=== PATIENT | male | born 1935 | race Caucasian/White ===

== ENCOUNTER 2018-06-22 08:56 | Inpatient (IN) | payer MEDICARE, OTHER ==
[~2018-06-22] VITALS: Ht 185.4 cm; Wt 96.3 kg
[~2018-06-22 08:56] MED LIST: AMIO100T3 PO; ASPI-1071 PO; CHOL400T32 PO; ESOM40CA PO; GABA-532 PO; HYDR-4353 PO; LEVO125T PO; ROPI1TAB2 PO; TEMA30CA PF
[2018-06-22] MEDS ORDERED: acetaminophen 325mg tablet PO STA (09:19)
[2018-06-22] MEDS ORDERED: normal saline 1000ML IV soln IV ONE (09:20)
[2018-06-22] MEDS ORDERED: ipratropium/albuterol 3ml nebule NEB ONE (09:30)
[2018-06-22 09:53] LABS: BASOPHILS # (AUTO) 0.2 X10'3 (0-0.2); BASOPHILS % (AUTO) 1.5 % (0-1); EOSINOPHILS % (AUTO) 0 % (0-6); HEMATOCRIT 43.5 % (42.0-52.0); HEMOGLOBIN 14.2 g/dl (14.0-17.9); LYMPHOCYTES # (AUTO) 0.4 X10'3 (1.1-4.8); LYMPHOCYTES % (AUTO) 3.6 % (21-51); MEAN CORPUSCULAR HEMOGLOBIN 27.3 PG (27.0-31.0); MEAN CORPUSCULAR HGB CONC 32.7 % (33.0-36.5); MEAN CORPUSCULAR VOLUME 83.6 FL (78-98); MEAN PLATELET VOLUME 9.1 FL (7.4-10.4); MONOCYTES # (AUTO) 0.3 X10'3 (0-0.9); MONOCYTES % (AUTO) 2.3 % (2-12); NEUTROPHILS # (AUTO) 11.1 X10'3 (1.8-7.7); NEUTROPHILS % (AUTO) 92.6 % (42-75); PLATELET COUNT 204 X10'3 (140-440); RED CELL DISTRIBUTION WIDTH 13.4 % (11.5-14.5)
[2018-06-22] MEDS ORDERED: levoFLOXACIN-Levaquin 750MG/D5 150 ML IV ONE (10:05)
[2018-06-22 10:08] LABS: ALANINE AMINOTRANSFERASE 22 U/L (12-78); ALBUMIN 2.9 G/DL (3.4-5.0); ALBUMIN/GLOBULIN RATIO 0.7 (1.1-1.5); ALKALINE PHOSPHATASE 82 IU/L (46-116); ANION GAP 17 (8-16); ASPARTATE AMINO TRANSFERASE 11 U/L (10-37); BILIRUBIN,TOTAL 1.2 MG/DL (0.1-1.0); BLOOD UREA NITROGEN 23 MG/DL (7-18); BUN/CREATININE RATIO 21.9 (5.4-32.0); CALCIUM 8.6 MG/DL (8.5-10.1); CHLORIDE 101 MMOL/L (99-107); CREATININE 1.05 MG/DL (0.60-1.10); GLUCOSE 124 MG/DL (70-104); POTASSIUM 3.8 MMOL/L (3.5-5.1); SODIUM 137 MMOL/L (135-145); TOTAL CARBON DIOXIDE 19.3 MMOL/L (24-32); TOTAL PROTEIN 7.3 G/DL (6.4-8.2); eGFR 68 ML/MIN
[2018-06-22] MEDS ORDERED: oseltamivir phos 75mg capsule PO ONE (10:10)
[2018-06-22 10:21] LABS: TOTAL CELLS COUNTED 100
[2018-06-22 10:22] LABS: TOXIC GRANULATION 1+
[2018-06-22 10:23] LABS: PLATELET ESTIMATE NORMAL
--- NOTE | 2018-06-22 10:35 | NUR ---
RELIEVING RN FOR BREAK, PT IS RESTING QUIETLY ON GURNEY, RESP EVEN AND UNLABORED, 1ST LITER NS INFUSING W/O, ANTIBIOTIC STARTED PER MD ORDER, 2ND BLOOD CX HAS BEEN DRAWN
[2018-06-22] MEDS ORDERED: acetaminophen 325mg tablet PO PRN ×2 (11:15)
[2018-06-22] MEDS ORDERED: magnesium Cl slow-release 64mg tablet PO PRN (11:15)
[2018-06-22] MEDS ORDERED: ondansetron/PF 4mg/2ml inj IV PRN (11:15)
[2018-06-22] MEDS ORDERED: potassium Cl 40MEQ/NS 500ml 500 ML IV PRN ×2 (11:15)
[2018-06-22] MEDS ORDERED: HYDROcodone/acetaminophen 5mg/325mg tablet PO PRN (11:15)
[2018-06-22] MEDS ORDERED: magnesium 4gm in 100ml NS 100 ML IV PRN (11:15)
[2018-06-22] MEDS ORDERED: potassium Cl 20 mEq SR tablet PO PRN (11:15)
[2018-06-22] MEDS ORDERED: ipratropium/albuterol 3ml nebule NEB PRN (11:15)
[2018-06-22] MEDS ORDERED: HYDROcodone/acetaminophen 10/325mg tab PO PRN (11:15)
[2018-06-22] MEDS ORDERED: mag hydrox/Alum hydrox/simeth 30ml oral suspension PO PRN (11:15)
[2018-06-22] MEDS ORDERED: magnesium hydroxide 30ml (MOM) UD suspension PO PRN (11:15)
[2018-06-22] MEDS ORDERED: morphine 4 MG/ML inj SYRINge IV PRN ×2 (11:15)
[2018-06-22] MEDS ORDERED: HYDROcodone/acetaminophen 5mg/325mg tablet PO ONE (11:30)
--- NOTE | 2018-06-22 11:45 | NUR ---
DR. MICHELLE WANTS 2MG IV MORPHINE BC PAIN AND NORCO TAKES A WHILE TO START. HOWEVER PT B/P IS LOW. 102/60
[2018-06-22] MEDS ORDERED: morphine 2 MG/ML inj. syringe IV ONE (12:00)
--- NOTE | 2018-06-22 12:00 | NUR ---
Patient in ED, awaiting bed on PCU. I have received report from JACQUES Swift and had the opportunity to ask questions.
[2018-06-22 12:02] LABS: CLARITY,URINE CLEAR (Clear); COLOR,URINE YELLOW (Yellow); GLUCOSE, URINE NEGATIVE (Neg); KETONES,URINE NEGATIVE (Neg); LEUKOCYTE ESTERASE ,URINE NEGATIVE (Neg); NITRITES, URINE NEGATIVE (Neg); OCCULT BLOOD,URINE SMALL (Neg); PH,URINE 5.5 (4.8-8.0); PROTEIN,URINE 30 mg/dl (Neg)
[2018-06-22] MEDS ORDERED: furosemide 40mg/4ml inj IV STA (12:08)
[2018-06-22 12:09] LABS: UA COLLECTION TYPE URINAL
[2018-06-22 12:13] LABS: HYALINE CASTS 0-3 /LPF (NEGATIVE); MUCUS STRANDS MANY /LPF (Neg); SQUAMOUS EPITHELIAL CELL,UR FEW /LPF (FEW); TRANSITIONAL EPI CELLS,URINE FEW /HPF
[2018-06-22 12:15] VITALS: BP 108/68
[2018-06-22 12:15] LABS: BACTERIA,URINE FEW /HPF (Neg); WBC,URINE 0-4 /HPF (0-4)
--- NOTE | 2018-06-22 12:15 | NUR ---
Pt transported from ED to PCU room 3025B via gurney accompanied by Ena. Witnessed patient transfer into bed. 2RN skin check performed, vital signs taken, tele pads & box placed.
[2018-06-22] MEDS: ROPINIRole 1mg tablet PO SCH ×2 (12:44→20:19)
[2018-06-22] MEDS: aspirin 81mg tablet.DR PO SCH (12:44)
[2018-06-22] MEDS: gabapentin 300mg capsule PO SCH ×2 (12:45→20:19)
[2018-06-22] MEDS: ipratropium/albuterol 3ml nebule NEB SCH ×3 (14:51→22:35)
[2018-06-22 15:00] VITALS: BP 132/70
--- NOTE | 2018-06-22 16:39 | NUR ---
Paged Dr. Michaels re lactic level. PAGER ID: [phone] MESSAGE: Pt Kennedy [place] in [id number]. Lactic is 4.0. Thanks! Ambar HANNA [phone]
--- NOTE | 2018-06-22 18:41 | NUR ---
Problems reprioritized. Patient report given, questions answered & plan of care reviewed with JACQUES Moraes.
[2018-06-22 19:00] VITALS: BP 101/57
[2018-06-22] MEDS: lactobacillus rhamnosus 10,000 MMU CELLS/CAPSULE PO SCH (20:18)
[2018-06-22] MEDS: HYDROcodone/acetaminophen 10/325mg tab PO PRN (21:24)
[2018-06-22 23:00] VITALS: BP 91/54
[2018-06-23] MEDS: ipratropium/albuterol 3ml nebule NEB SCH ×6 (02:38→23:10)
[2018-06-23 03:00] VITALS: BP 125/63
[2018-06-23 05:20] LABS: BASOPHILS % (AUTO) 0.3 % (0-1); EOSINOPHILS % (AUTO) 0 % (0-6); HEMATOCRIT 38.3 % (42.0-52.0); HEMOGLOBIN 12.7 g/dl (14.0-17.9); LYMPHOCYTES # (AUTO) 0.9 X10'3 (1.1-4.8); LYMPHOCYTES % (AUTO) 6.6 % (21-51); MEAN CORPUSCULAR HEMOGLOBIN 27.7 PG (27.0-31.0); MEAN CORPUSCULAR HGB CONC 33.2 % (33.0-36.5); MEAN CORPUSCULAR VOLUME 83.3 FL (78-98); MEAN PLATELET VOLUME 9.1 FL (7.4-10.4); MONOCYTES # (AUTO) 0.5 X10'3 (0-0.9); NEUTROPHILS % (AUTO) 89.1 % (42-75); PLATELET COUNT 201 X10'3 (140-440); WHITE BLOOD COUNT 13.4 X10'3 (4.5-11.0)
[2018-06-23 05:25] LABS: ALBUMIN 2.5 G/DL (3.4-5.0); ANION GAP 13 (8-16); BLOOD UREA NITROGEN 18 MG/DL (7-18); BUN/CREATININE RATIO 18.6 (5.4-32.0); CALCIUM 8.5 MG/DL (8.5-10.1); CHLORIDE 103 MMOL/L (99-107); CREATININE 0.97 MG/DL (0.60-1.10); GLUCOSE 108 MG/DL (70-104); MAGNESIUM 1.9 MG/DL (1.5-2.4); POTASSIUM 3.4 MMOL/L (3.5-5.1); SODIUM 139 MMOL/L (135-145); eGFR 74 ML/MIN
--- NOTE | 2018-06-23 06:14 | NUR ---
Patient in room PCU 3025. I have received report from JACQUES Moraes and had the opportunity to ask questions and assume patient care.
[2018-06-23 07:00] VITALS: BP 127/71
[2018-06-23] MEDS: furosemide 20 MG/2 ML vial IV SCH ×2 (07:08→20:00)
[2018-06-23] MEDS: levoFLOXACIN-Levaquin 750MG/D5 150 ML IV SCH (07:09)
[2018-06-23] MEDS: ROPINIRole 1mg tablet PO SCH ×3 (07:09→20:20)
[2018-06-23] MEDS: potassium Cl 20 mEq SR tablet PO PRN ×3 (07:09→20:19)
[2018-06-23] MEDS: lactobacillus rhamnosus 10,000 MMU CELLS/CAPSULE PO SCH ×2 (07:09→20:19)
[2018-06-23] MEDS: aspirin 81mg tablet.DR PO SCH (07:10)
[2018-06-23] MEDS: amiodarone 100mg tablet PO SCH (07:10)
[2018-06-23] MEDS: gabapentin 300mg capsule PO SCH ×3 (07:10→20:18)
[2018-06-23] MEDS: levoTHYROXINE 125mcg tablet PO SCH (07:10)
[2018-06-23] MEDS: HYDROcodone/acetaminophen 10/325mg tab PO PRN ×2 (07:11→13:28)
[2018-06-23] MEDS: enoxaparin 40mg/0.4ml syringe SQ SCH (07:11)
[2018-06-23] MEDS: K and/or MAG REPLACEMENT MC SCH (08:00)
[2018-06-23 11:00] VITALS: BP 107/58
[2018-06-23 15:00] VITALS: BP 115/56
--- NOTE | 2018-06-23 18:27 | NUR ---
Problems reprioritized. Patient report given, questions answered & plan of care reviewed with JACQUES Moraes.
--- NOTE | 2018-06-23 18:32 | NUR ---
Patient in room PCU 3025. I have received report from Ambar HANNA and had the opportunity to ask questions and assume patient care.
[2018-06-23 19:00] VITALS: BP 97/49
[2018-06-23] MEDS ORDERED: Melatonin 3mg tablet PO PRN (19:00)
--- NOTE | 2018-06-23 20:00 | NUR ---
Held Lasix due to decreased blood pressor 94/55
[2018-06-23 23:00] VITALS: BP 106/57
[2018-06-24] MEDS: HYDROcodone/acetaminophen 10/325mg tab PO PRN ×2 (02:10→11:32)
[2018-06-24 03:00] VITALS: BP 117/61
[2018-06-24] MEDS: ipratropium/albuterol 3ml nebule NEB SCH ×6 (03:02→23:00)
[2018-06-24 05:00] LABS: ALBUMIN 2.3 G/DL (3.4-5.0); ANION GAP 12 (8-16); BLOOD UREA NITROGEN 21 MG/DL (7-18); BUN/CREATININE RATIO 20.4 (5.4-32.0); CALCIUM 8.3 MG/DL (8.5-10.1); CHLORIDE 101 MMOL/L (99-107); CREATININE 1.03 MG/DL (0.60-1.10); GLUCOSE 115 MG/DL (70-104); SODIUM 136 MMOL/L (135-145); TOTAL CARBON DIOXIDE 23.5 MMOL/L (24-32); eGFR 69 ML/MIN
[2018-06-24 05:03] LABS: BASOPHILS % (AUTO) 0.4 % (0-1); EOSINOPHILS % (AUTO) 0.4 % (0-6); HEMATOCRIT 37.6 % (42.0-52.0); HEMOGLOBIN 12.4 g/dl (14.0-17.9); LYMPHOCYTES % (AUTO) 9.3 % (21-51); MEAN CORPUSCULAR HEMOGLOBIN 27.6 PG (27.0-31.0); MEAN CORPUSCULAR VOLUME 83.7 FL (78-98); MEAN PLATELET VOLUME 9.4 FL (7.4-10.4); MONOCYTES # (AUTO) 0.5 X10'3 (0-0.9); MONOCYTES % (AUTO) 4.4 % (2-12); NEUTROPHILS # (AUTO) 9.2 X10'3 (1.8-7.7); NEUTROPHILS % (AUTO) 85.5 % (42-75); PLATELET COUNT 207 X10'3 (140-440); RED BLOOD COUNT 4.49 X10'6 (4.70-6.10); RED CELL DISTRIBUTION WIDTH 13.2 % (11.5-14.5); WHITE BLOOD COUNT 10.7 X10'3 (4.5-11.0)
--- NOTE | 2018-06-24 06:19 | NUR ---
Patient in room PCU 3025. I have received report from JACQUES Moraes and had the opportunity to ask questions and assume patient care.
--- NOTE | 2018-06-24 06:22 | NUR ---
Problems reprioritized. Patient report given, questions answered & plan of care reviewed with Ambar HANNA.
--- NOTE | 2018-06-24 06:23 | NUR ---
[place]rientee documentation: I have reviewed and agree with all interventions, assessments performed and documented by Reed HANNA.
--- NOTE | 2018-06-24 06:27 | NUR ---
[place] Medication Administration: For this medication-pass time frame, all medication were reviewed, dispensed, administered and documented per hospital policy by Penelope HANNA.
[2018-06-24 07:00] VITALS: BP 122/66
[2018-06-24] MEDS: K and/or MAG REPLACEMENT MC SCH (08:00)
--- NOTE | 2018-06-24 08:45 | NUR ---
Dr. Michaels at bedside. Pt requested Wilson 10/325 at his regular scheduled home dose time of [address] Michaels agreed to this schedule and offered Wilson 5/325 available PRN for other pain.
[2018-06-24] MEDS: aspirin 81mg tablet.DR PO SCH (08:47)
[2018-06-24] MEDS: enoxaparin 40mg/0.4ml syringe SQ SCH (08:47)
[2018-06-24] MEDS: ROPINIRole 1mg tablet PO SCH ×3 (08:47→20:51)
[2018-06-24] MEDS: amiodarone 100mg tablet PO SCH (08:47)
[2018-06-24] MEDS: gabapentin 300mg capsule PO SCH ×3 (08:47→20:51)
[2018-06-24] MEDS: levoFLOXACIN-Levaquin 750MG/D5 150 ML IV SCH (08:47)
[2018-06-24] MEDS: furosemide 20 MG/2 ML vial IV SCH ×2 (08:48→19:24)
[2018-06-24] MEDS: lactobacillus rhamnosus 10,000 MMU CELLS/CAPSULE PO SCH ×2 (08:48→19:24)
[2018-06-24] MEDS: levoTHYROXINE 125mcg tablet PO SCH (08:48)
[2018-06-24 11:00] VITALS: BP 115/64
[2018-06-24 15:00] VITALS: BP 127/56
[2018-06-24] MEDS ORDERED: HYDROcodone/acetaminophen 5mg/325mg tablet PO PRN (16:15)
[2018-06-24 18:00] VITALS: BP 123/53
--- NOTE | 2018-06-24 18:30 | NUR ---
Problems reprioritized. Patient report given, questions answered & plan of care reviewed with JACQUES Desai.
--- NOTE | 2018-06-24 18:30 | NUR ---
Patient in room PCU 3025. I have received report from Ambar HANNA and had the opportunity to ask questions and assume patient care.
[2018-06-24 22:00] VITALS: BP 115/60
[2018-06-25] MEDS: HYDROcodone/acetaminophen 10/325mg tab PO PRN ×3 (01:22→15:04)
[2018-06-25 02:11] VITALS: BP 131/72
[2018-06-25] MEDS: ipratropium/albuterol 3ml nebule NEB SCH ×7 (02:50→23:12)
[2018-06-25 06:00] VITALS: BP 93/65
[2018-06-25 06:20] LABS: BASOPHILS # (AUTO) 0.2 X10'3 (0-0.2); BASOPHILS % (AUTO) 1.5 % (0-1); EOSINOPHILS % (AUTO) 0.3 % (0-6); HEMATOCRIT 41.1 % (42.0-52.0); HEMOGLOBIN 13.4 g/dl (14.0-17.9); LYMPHOCYTES # (AUTO) 1.2 X10'3 (1.1-4.8); LYMPHOCYTES % (AUTO) 11.2 % (21-51); MEAN CORPUSCULAR HEMOGLOBIN 27.2 PG (27.0-31.0); MEAN CORPUSCULAR HGB CONC 32.5 % (33.0-36.5); MEAN CORPUSCULAR VOLUME 83.5 FL (78-98); MEAN PLATELET VOLUME 9.3 FL (7.4-10.4); MONOCYTES # (AUTO) 0.7 X10'3 (0-0.9); MONOCYTES % (AUTO) 6.7 % (2-12); NEUTROPHILS # (AUTO) 8.8 X10'3 (1.8-7.7); NEUTROPHILS % (AUTO) 80.3 % (42-75); PLATELET COUNT 268 X10'3 (140-440); RED BLOOD COUNT 4.92 X10'6 (4.70-6.10); RED CELL DISTRIBUTION WIDTH 13.7 % (11.5-14.5); WHITE BLOOD COUNT 10.9 X10'3 (4.5-11.0)
--- NOTE | 2018-06-25 06:48 | NUR ---
Problems reprioritized. Patient report given, questions answered & plan of care reviewed with Brittany HANNA.
[2018-06-25 06:54] LABS: ALBUMIN 2.5 G/DL (3.4-5.0); ANION GAP 10 (8-16); BLOOD UREA NITROGEN 21 MG/DL (7-18); BUN/CREATININE RATIO 21.4 (5.4-32.0); CALCIUM 8.5 MG/DL (8.5-10.1); CHLORIDE 98 MMOL/L (99-107); CREATININE 0.98 MG/DL (0.60-1.10); GLUCOSE 99 MG/DL (70-104); MAGNESIUM 2.1 MG/DL (1.5-2.4); POTASSIUM 4.2 MMOL/L (3.5-5.1); SODIUM 133 MMOL/L (135-145); TOTAL CARBON DIOXIDE 25.2 MMOL/L (24-32); eGFR 73 ML/MIN
--- NOTE | 2018-06-25 06:55 | NUR ---
Patient in room PCU 3025. I have received report from PUTTY AND PATCH WORKERQUANTITATIVE RESEARCH ANALYST, and had the opportunity to ask questions and assume patient care.
[2018-06-25] MEDS: K and/or MAG REPLACEMENT MC SCH (08:00)
[2018-06-25] MEDS: lactobacillus rhamnosus 10,000 MMU CELLS/CAPSULE PO SCH ×2 (08:00→20:51)
[2018-06-25] MEDS: ROPINIRole 1mg tablet PO SCH ×3 (08:37→20:51)
[2018-06-25] MEDS: aspirin 81mg tablet.DR PO SCH (08:37)
[2018-06-25] MEDS: levoTHYROXINE 125mcg tablet PO SCH (08:37)
[2018-06-25] MEDS: amiodarone 100mg tablet PO SCH (08:37)
[2018-06-25] MEDS: enoxaparin 40mg/0.4ml syringe SQ SCH (08:37)
[2018-06-25] MEDS: gabapentin 300mg capsule PO SCH ×3 (08:37→20:51)
[2018-06-25] MEDS: furosemide 20 MG/2 ML vial IV SCH ×2 (08:38→20:51)
[2018-06-25] MEDS: levoFLOXACIN-Levaquin 750MG/D5 150 ML IV SCH (08:38)
[2018-06-25 11:00] VITALS: BP 95/65
[2018-06-25 15:00] VITALS: BP 118/70
--- NOTE | 2018-06-25 18:15 | NUR ---
Problems reprioritized. Patient report given, questions answered & plan of care reviewed with JACQUES ZARATE.
[2018-06-25 19:00] VITALS: BP 109/62
[2018-06-25 23:00] VITALS: BP 112/63
[2018-06-26] MEDS: ipratropium/albuterol 3ml nebule NEB SCH ×4 (02:46→14:08)
[2018-06-26 03:00] VITALS: BP 116/65
[2018-06-26 06:00] VITALS: BP 101/69
--- NOTE | 2018-06-26 06:18 | NUR ---
Patient in room PCU 3025. I have received report from Shane RN and had the opportunity to ask questions and assume patient care. Pt sleep and appears to be in distress at time of transfer.
--- NOTE | 2018-06-26 06:18 | NUR ---
Patient in room PCU 3025. I have received report from ELLIOT RN and had the opportunity to ask questions and assume patient care. PT RESTING COMFOPRTABLY IN BED AT THIS TIME WITH NO SIGNS OF DISTRESS, WILL CONTINUE TO MONITOR.
[2018-06-26 06:25] LABS: BASOPHILS # (AUTO) 0.1 X10'3 (0-0.2); BASOPHILS % (AUTO) 0.6 % (0-1); EOSINOPHILS # (AUTO) 0.1 X10'3 (0-0.9); EOSINOPHILS % (AUTO) 1.1 % (0-6); HEMATOCRIT 44.8 % (42.0-52.0); HEMOGLOBIN 14.4 g/dl (14.0-17.9); LYMPHOCYTES # (AUTO) 1.4 X10'3 (1.1-4.8); LYMPHOCYTES % (AUTO) 12.7 % (21-51); MEAN CORPUSCULAR HEMOGLOBIN 26.4 PG (27.0-31.0); MEAN CORPUSCULAR HGB CONC 32.1 % (33.0-36.5); MEAN CORPUSCULAR VOLUME 82.3 FL (78-98); MEAN PLATELET VOLUME 8.8 FL (7.4-10.4); MONOCYTES # (AUTO) 0.8 X10'3 (0-0.9); MONOCYTES % (AUTO) 7.5 % (2-12); NEUTROPHILS # (AUTO) 8.5 X10'3 (1.8-7.7); NEUTROPHILS % (AUTO) 78.1 % (42-75); PLATELET COUNT 316 X10'3 (140-440); RED BLOOD COUNT 5.45 X10'6 (4.70-6.10); RED CELL DISTRIBUTION WIDTH 14.6 % (11.5-14.5); WHITE BLOOD COUNT 10.9 X10'3 (4.5-11.0)
[2018-06-26] MEDS: K and/or MAG REPLACEMENT MC SCH (08:00)
[2018-06-26 08:17] LABS: ALBUMIN 2.6 G/DL (3.4-5.0); ANION GAP 11 (8-16); BLOOD UREA NITROGEN 23 MG/DL (7-18); BUN/CREATININE RATIO 19.5 (5.4-32.0); CALCIUM 8.9 MG/DL (8.5-10.1); CHLORIDE 97 MMOL/L (99-107); CREATININE 1.18 MG/DL (0.60-1.10); GLUCOSE 102 MG/DL (70-104); MAGNESIUM 2.3 MG/DL (1.5-2.4); SODIUM 134 MMOL/L (135-145); TOTAL CARBON DIOXIDE 25.6 MMOL/L (24-32); eGFR 59 ML/MIN
[2018-06-26 08:19] LABS: POTASSIUM 4.8 MMOL/L (3.5-5.1)
[2018-06-26] MEDS: levoFLOXACIN-Levaquin 750MG/D5 150 ML IV SCH (08:39)
[2018-06-26] MEDS: enoxaparin 40mg/0.4ml syringe SQ SCH (08:40)
[2018-06-26] MEDS: furosemide 20 MG/2 ML vial IV SCH (08:40)
[2018-06-26] MEDS: aspirin 81mg tablet.DR PO SCH (08:41)
[2018-06-26] MEDS: HYDROcodone/acetaminophen 10/325mg tab PO PRN (08:41)
[2018-06-26] MEDS: lactobacillus rhamnosus 10,000 MMU CELLS/CAPSULE PO SCH (08:42)
[2018-06-26] MEDS: ROPINIRole 1mg tablet PO SCH ×2 (08:42→13:46)
[2018-06-26] MEDS: levoTHYROXINE 125mcg tablet PO SCH (08:42)
[2018-06-26] MEDS: amiodarone 100mg tablet PO SCH (08:43)
[2018-06-26] MEDS: gabapentin 300mg capsule PO SCH ×2 (08:43→13:46)
[2018-06-26] MEDS ORDERED: LACT1CAP26 PO (10:52)
[2018-06-26] MEDS ORDERED: LEVO750T21 PO (10:52)
[2018-06-26] MEDS ORDERED: ASPI-1071 PO (10:52)
[2018-06-26] MEDS ORDERED: FURO-149 PO (10:52)
[2018-06-26] MEDS ORDERED: ALBU18HF2 IH (10:52)
[2018-06-26 11:00] VITALS: BP 103/70
--- NOTE | 2018-06-26 14:50 | NUR ---
Removed pt.s monitor and IV removed pt. tolerated well. Pt. accompanied with his and sent with belongings. Pt. wheeled down to private vehicle via a nurses's aide and pt. was in stable condition. O2 saturation on room air was in the low 90s. Pt declined follow up appointment, they already have one scheduled. Pt. no longer on the floor.
== END 2018-06-26 16:26 | disposition home or self-care (01) | DRG 871 ==
LOC: ER 08:57 → PACU 11:13 → PCU 3S 12:00 → CMPBEDREQ 19:27
PROVIDERS: ADMIT Hospitalist; ATTEND Hospitalist
DX: A41.9 Sepsis, unspecified organism (principal); J18.1 Lobar pneumonia, unspecified organism; J96.01 Acute respiratory failure with hypoxia; I50.33 Acute on chronic diastolic (congestive) heart failure; E03.9 Hypothyroidism, unspecified; G89.4 Chronic pain syndrome; I25.10 Atherosclerotic heart disease of native coronary artery without angina pectoris; I48.91 Unspecified atrial fibrillation; N40.0 Benign prostatic hyperplasia without lower urinary tract symptoms; G62.9 Polyneuropathy, unspecified; R31.9 Hematuria, unspecified; Z90.49 Acquired absence of other specified parts of digestive tract; Z95.0 Presence of cardiac pacemaker; Z79.899 Other long term (current) drug therapy; Z79.890 Hormone replacement therapy; Z85.72 Personal history of non-Hodgkin lymphomas; Z87.442 Personal history of urinary calculi
CPT/HCPCS: 36415; 71046; 80048; 80053; 81001; 82948; 83605; 83735; 83880; 84145; 84443; 84484; 85025; 87040; 87070; 87502; 87503; 93005; 93306; 94640; 94760; 96365; 99285; G0378; J1650; J1940; J1956; J2270